=== PATIENT | male | born 1965 | race Two or more races ===

== ENCOUNTER 2017-10-10 02:59 | Emergency (ER) | payer OTHER ==
[2017-10-10 03:08] VITALS: BP 130/80; TEMP 97.9; O2SAT 96
--- NOTE | 2017-10-10 03:18 | EDPHY ---
H & P Stated Complaint: pain behind r knee developed on flight [place] HPI/ROS: HPI CHIEF COMPLAINT: Pain behind right knee. HISTORY OF PRESENT ILLNESS: This patient very pleasant 52-year-old male, otherwise healthy he presents emergency room with pain located behind the right knee or in the popliteal region. No significant calf pain. He denies chest pain or shortness of breath. He does fly weekly 2 [place]. He flew back in to [place] this evening. His flight was 10:30 p.m. out of [place] landed at [facility] airport 1:30 one thirty a.m.. During his flight he developed some cramping in his right posterior leg behind his knee. He has never had a DVT or PE before. He is concerned that given the amount of flying he does weekly that he may have a DVT. Came to the emergency room he denies any significant swelling. Denies injuries to his leg. Denies trauma. States pain is located right posterior popliteal. Denies pleuritic pain, chest pain, shortness of breath. Otherwise feels fine. Came to the Emergency Room to have ultrasound to rule out DVT. Past Medical History: No significant medical history Past Surgical History: No significant surgical history Social History: Denies daily use drugs alcohol tobacco products. Takes weekly trip to [place]. Family History: Noncontributory ROS REVIEW OF SYSTEMS: A comprehensive 10 point review of systems is otherwise negative aside from elements mentioned in the history of present illness. Exam Constitutional appears well nontoxic, triage nursing summary reviewed, vital signs reviewed, awake/alert. Eyes normal conjunctivae and sclera, EOMI, PERRLA. HENT normal inspection, atraumatic, moist mucus membranes, no epistaxis, neck supple/ no meningismus, no raccoon eyes. Respiratory clear to auscultation bilaterally, normal breath sounds, no respiratory distress, no wheezing. Cardiovascular rate normal, regular rhythm, no murmur, no edema, distal pulses normal. Gastrointestinal soft, non-tender, no rebound, no guarding, normal bowel sounds, no distension, no pulsatile mass. Genitourinary no CVA tenderness. Musculoskeletal no midline vertebral tenderness, full range of motion, no calf swelling, no tenderness of extremities, no meningismus, good pulses, neurovascularly intact. Right lower extremity warm extremity. No significant swelling on exam. Good cap refill. Full range of motion. No significant calf tenderness on palpation. No popliteal fullness. Full range of motion. No compartment syndrome. No palpable cord. No cellulitis or abscess visualize. Skin pink, warm, & dry, no rash, skin atraumatic. Neurologic awake, alert and oriented x 3, AAOx3, moves all 4 extremities equally, motor intact, sensory intact, CN II-XII intact, normal cerebellar, normal vision, normal speech. Psychiatric normal mood/affect. Heme/Lymph/Immune no lymphadenopathy. Differential Diagnosis: Includes but is not limited to in a particular order, calf cramp, calf strain, DVT, Dougherty cyst. Medical Decision Making: Plan for this patient ultrasound Doppler right lower extremity rule out DVT. Ibuprofen 800 mg for pain control. Re-evaluate. Re-evaluation: Ultrasound of the Doppler right lower extremity for posterior popliteal and calf pain The results of the study are negative for acute DVT. I discussed the results of this study with the radiologist Dr. Simons 0419: Patient resting comfortably. Feels better after ibuprofen 800 mg. Ultrasound reviewed with him no evidence of DVT. Recommend close follow-up with his primary care doctor. He understands return emergency room if develops worsening pain, swelling questions or concerns. Continues to have pain recommend repeat ultrasound in 1 weeksor follow up closely with his primary care doctor. Source: Patient - Personal History Current Tetanus/Diphtheria Vaccine: Yes Current Tetanus Diphtheria and Acellular Pertussis (TDAP): Yes - Medical/Surgical History Hx Asthma: No Hx Chronic Respiratory Disease: No Hx Diabetes: No Hx Cardiac Disease: No Hx Renal Disease: No Hx Cirrhosis: No Hx Alcoholism: No Hx HIV/AIDS: No Hx Splenectomy or Spleen Trauma: No Other PMH: tonsils - Social History Smoking Status: Never smoked Constitutional: Initial Vital Signs Temperature (C) 36.6 C 10/10/17 03:04 Heart Rate 81 10/10/17 03:04 Respiratory Rate 18 10/10/17 03:04 Blood Pressure 130/80 H 10/10/17 03:04 O2 Sat (%) 96 10/10/17 03:04 O2 Delivery Mode Room Air Allergies/Adverse Reactions: No Known Allergies Allergy (Unverified 10/10/17 03:03) Home Medications: Medication Instructions Recorded Levothyroxine [Synthroid 100 mcg 2 10/10/17 (*)] Medical Decision Making - Data Points Medications Given: Discontinued Medications Ibuprofen (Motrin) 800 mg PO EDNOW ONE Stop: 10/10/17 03:26 Last Admin: 10/10/17 04:03 Dose: 800 mg Departure - Departure Disposition: Home, Routine, Self-Care Clinical Impression: Leg cramp Condition: Good Instructions: Leg Cramps (ED), Muscle Cramp (ED) Additional Instructions: 1. Stay well-hydrated 2. Drink lots of fluids. 3. Return emergency room if you have worsening pain, fever, swelling. 4. If you have further pain or swelling or continue have pain please follow up with her primary care doctor. If it severe return to the ER.
[2017-10-10] MEDS ORDERED: IBUPROFEN 800 MG TAB PO ONE (03:25)
[2017-10-10 04:29] VITALS: PULSE 86; RESP 16
== END 2017-10-10 04:28 | disposition home or self-care (01) ==
DX: R25.2 Cramp and spasm (principal)

== ENCOUNTER → 2018-09-06 | Outpatient (CLI) | payer OTHER | LOC: BMCIMAGING 15:57 | PROVIDERS: ATTEND Podiatrist Foot & Ankle Surgery | DX: M10.071 Idiopathic gout, right ankle and foot (principal) ==

== ENCOUNTER → 2018-09-29 | Outpatient (CLI) | payer OTHER | LOC: BMCIMAGING 10:09 | PROVIDERS: ATTEND Podiatrist Foot & Ankle Surgery | DX: M20.21 Hallux rigidus, right foot (principal) ==

== ENCOUNTER 2019-02-12 08:40 | Emergency (ER) | payer OTHER ==
[2019-02-12 09:23] LABS: PLATELET COUNT 159 10^3/uL (150-400)
--- NOTE | 2019-02-12 09:39 | EDPHY ---
General - History Smoking Status: Never smoked Time Seen by Provider: 02/12/19 08:57 Narrative: CLINICAL IMPRESSION: Leg cramping, dark urine ASSESSMENT/PLAN: 54-year-old male with past medical history of low testosterone and hypothyroidism presents to the emergency department with atraumatic bilateral leg cramping and reports of dark urine this morning. No associated asymmetric lower extremity swelling, temperature difference, or paresthesias. No abdominal pain, emy-colored stools, or history of cirrhosis, hepatitis, or gallbladder problems. Patient found to have an elevated urine urobilinogen level of 4 with no hematuria., CK of 83, not suggestive of acute rhabdomyolysis. Liver enzymes and renal function are normal. No clinical signs to suggest DVT. Repeat urine in the emergency department was clear according to the patient. No reproducible leg discomfort or sign of compartment syndrome today. Discussed with Dr. Villar. I have recommended patient repeat urine study with his primary care doctor in 48 hr. Increased water use and decreased alcohol intake. Warning signs return to ED sooner outlined and discharge. DIFFERENTIAL DX: Differential includes but not limited to rhabdomyolysis, acute liver disease, hepatitis, biliary tract obstruction, cirrhosis, urinary tract infection, pyelonephritis, prostatitis, dehydration, electrolyte imbalance ED PROCEDURES: See lab and/or imaging results below ED COURSE: 9:00 a.m.: Patient seen and assessed by myself. No acute distress, vital signs stable, plan for urine studies, IV, labs including CK and liver function studies. 9:45 a.m.: Labs reviewed by myself. Patient has elevated urobilinogen in the urine with no hematuria, protein urea or glucose. LFTs are unremarkable, no laboratory evidence of hepatitis. Remainder of lab work is reassuring. Patient reassessed, feeling well, labs reviewed in detail. No reported abdominal pain, click colored stools, jaundice or skin coloration, yellowing of the eyes. I did discuss an offer ultrasound of bilateral lower extremity to rule out DVT but he has declined. I emphasized the importance of PCP follow-up in the next 24-48 hours with low threshold for ED return. Patient is in agreement with this plan and comfortable with discharge home. CHIEF COMPLAINT: Bilateral leg cramps and orange urine HPI: Very pleasant 54-year-old male with past medical history of hypothyroidism and rhabdomyolysis in 2001 presents to the emergency department with 2 days of bilateral atraumatic leg cramping. Patient reports last night his cramping was so bad that he was walking "with bent knees hunched over like an elderly person ". He had his massage his legs which was the only thing that alleviated his discomfort and allowed him to sleep. He reports a past history of rhabdomyolysis in 2001 after failing to drink enough water during an adventure raise. He has not had problems since that time and symptoms resolved with 3 L of IV fluid. He reports no traumatic injury, heavy exercise or weightlifting. He does drink alcohol socially but did not have excess alcohol last night. He feels he drinks plenty of water. No reported history of liver disease, cirrhosis or hepatitis. No abdominal pain, nausea vomiting or diarrhea. No history of DVT or PE and patient denies chest pain and shortness of breath. 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 No reported asymmetric swelling to the legs, isolated calf pain erythema or warmth. No reported jaundice, skin discoloration or yellowing of the eyes. PAST MEDICAL HISTORY: Low testosterone, hypothyroidism, history of rhabdomyolysis See nurse/triage notes for additional history if applicable Pertinent Past Surgical History: None reported Family History: Noncontributory Social History: , lives with his , nonsmoker, drinks socially REVIEW OF SYSTEMS: All other systems negative Constitutional: No fever, no chills, appetite change. Cardiovascular: No chest pain, no palpitations. Respiratory: No cough, no shortness of breath. Gastrointestinal: No abdominal pain, no vomiting, diarrhea. Genitourinary: Glades colored urine, denies dysuria, flank pain, pelvic pain Musculoskeletal: No back pain, positive for bilateral leg cramping Skin: No rashes, color change. Neurological: No headache, dizziness, weakness. PHYSICAL EXAM: General Appearance: Alert, oriented, appropriate, cooperative, NAD, well hydrated, non-toxic appearing, hypertensive, remainder of vital signs stable, no hypoxia. Respiratory: There are no retractions, lungs are clear to auscultation. Cardiac: Regular rate and rhythm, no murmurs or gallops. Gastrointestinal: Abdomen is soft, nontender, bowel sounds normal, no masses/ hernia, no rigidity, guarding or focal peritoneal findings. Neurological: [ Alert and oriented x 3, CN 2-12 grossly intact, normal gait no ataxia Skin: Warm, dry, no rashes, no nodules on palpation. Musculoskeletal: Extremities are symmetrical, full range of motion, no tenderness, deformity, swelling, or erythema. No reproducible pain to palpation of either calf. Mild pain to anterior bilateral thighs. Patient reports he had pain posterior hamstring and gluteal muscles last night which is resolved today. No asymmetric erythema, swelling. Distal neurovascular exam is intact. No open wound. Psychiatric: Patient is oriented X 3, there is no agitation. MEDICAL DECISION MAKING: Patient was seen independently. Secondary supervising physician at time of evaluation was Dr. Villar . Diagnosis: Leg cramping, elevated urine urobilinogen . New, requires workup Summary: See Assessment and Plan for summary of ED visit Clinical lab tests: ordered / reviewed. Discussed patient with another provider: Dr. Villar Patient Progress: Stable for discharge. (Joshua Robin) Medical Decision Making: PHYSICIAN DOCUMENTATION: The patient was evaluated and managed by the Physician Language Translator. My co- signature indicates that I have reviewed this chart and I agree with the findings and plan of care as documented. I am the secondary supervising physician. (Karl Villar) - Objective Vital Signs: Initial Vital Signs Temperature (C) 36.6 C 02/12/19 08:43 Heart Rate 69 02/12/19 08:43 Respiratory Rate 16 02/12/19 08:43 Blood Pressure 137/100 H 02/12/19 08:43 O2 Sat (%) 97 02/12/19 08:43 O2 Delivery Mode Room Air Allergies/Adverse Reactions: No Known Allergies Allergy (Unverified 10/10/17 03:03) Home Medications: Medication Instructions Recorded Levothyroxine [Synthroid 100 mcg 2 10/10/17 (*)] Testosterone 02/12/19 Laboratory Results: Laboratory Results 02/12/19 09:05 02/12/19 09:05 02/12/19 02/12/19 02/12/19 09:38 09:05 09:05 WBC 3.82 10^3/uL 10^3/uL (3.80-9.50) RBC 5.22 10^6/uL 10^6/uL (4.40-6.38) Hgb 15.9 g/dL g/dL (13.7-17.5) Hct 46.6 % % (40.0-51.0) MCV 89.3 fL fL (81.5-99.8) MCH 30.5 pg pg (27.9-34.1) MCHC 34.1 g/dL g/dL (32.4-36.7) RDW 12.6 % % (11.5-15.2) Plt Count 159 10^3/uL 10^3/uL (150-400) MPV 10.2 fL fL (8.7-11.7) Neut % (Auto) 57.3 % % (39.3-74.2) Lymph % (Auto) 30.9 % % (15.0-45.0) Powell % (Auto) 9.2 % % (4.5-13.0) Eos % (Auto) 1.6 % % (0.6-7.6) Baso % (Auto) 0.5 % % (0.3-1.7) Nucleat RBC Rel Count 0.0 % % (0.0-0.2) Absolute Neuts (auto) 2.19 10^3/uL 10^3/uL (1.70-6.50) Absolute Lymphs (auto) 1.18 10^3/uL 10^3/uL (1.00-3.00) Absolute Monos (auto) 0.35 10^3/uL 10^3/uL (0.30-0.80) Absolute Eos (auto) 0.06 10^3/uL 10^3/uL (0.03-0.40) Absolute Basos (auto) 0.02 10^3/uL 10^3/uL (0.02-0.10) Absolute Nucleated RBC 0.00 10^3/uL 10^3/uL (0-0.01) Immature Gran % 0.5 % % (0.0-1.1) Immature Gran # 0.02 10^3/uL 10^3/uL (0.00-0.10) Sodium 139 mEq/L mEq/L (135-145) Potassium 4.5 mEq/L mEq/L (3.5-5.2) Chloride 100 mEq/L mEq/L (97-110) Carbon Dioxide 28 mEq/l mEq/l (22-31) Anion Gap 11 mEq/L mEq/L (6-14) BUN 18 mg/dL mg/dL (7-23) Creatinine 1.0 mg/dL mg/dL (0.7-1.3) Estimated GFR > 60 Glucose 107 mg/dL H mg/dL (70-100) Calcium 9.5 mg/dL mg/dL (8.5-10.4) Total Bilirubin 0.6 mg/dL mg/dL (0.1-1.4) Conjugated Bilirubin 0.4 mg/dL mg/dL (0.0-0.5) Unconjugated Bilirubin 0.2 mg/dL mg/dL (0.0-1.1) AST 22 IU/L IU/L (17-59) ALT 33 IU/L IU/L (21-72) Alkaline Phosphatase 70 IU/L IU/L (38-126) Creatine Kinase 82 IU/L IU/L (0-224) Total Protein 7.1 g/dL g/dL (6.3-8.2) Albumin 4.4 g/dL g/dL (3.5-5.0) Urine Color Urine Appearance Urine pH Ur Specific Odin Urine Protein Urine Ketones Urine Blood Urine Nitrate Urine Bilirubin Urine Urobilinogen Ur Leukocyte Esterase Urine Glucose 02/12/19 09:00 WBC RBC Hgb Hct MCV MCH MCHC RDW Plt Count MPV Neut % (Auto) Lymph % (Auto) Powell % (Auto) Eos % (Auto) Baso % (Auto) Nucleat RBC Rel Count Absolute Neuts (auto) Absolute Lymphs (auto) Absolute Monos (auto) Absolute Eos (auto) Absolute Basos (auto) Absolute Nucleated RBC Immature Gran % Immature Gran # Sodium Potassium Chloride Carbon Dioxide Anion Gap BUN Creatinine Estimated GFR Glucose Calcium Total Bilirubin Conjugated Bilirubin Unconjugated Bilirubin AST ALT Alkaline Phosphatase Creatine Kinase Total Protein Albumin Urine Color YELLOW Urine Appearance CLEAR Urine pH 6.0 (5.0-7.5) Ur Specific Odin 1.004 (1.002-1.030) Urine Protein NEGATIVE (NEGATIVE) Urine Ketones NEGATIVE (NEGATIVE) Urine Blood NEGATIVE (NEGATIVE) Urine Nitrate NEGATIVE (NEGATIVE) Urine Bilirubin NEGATIVE (NEGATIVE) Urine Urobilinogen 4.0 EU H EU (0.2-1.0) Ur Leukocyte Esterase NEGATIVE (NEGATIVE) Urine Glucose NEGATIVE (NEGATIVE) Departure - Departure Disposition: Home, Routine, Self-Care Clinical Impression: Leg cramps, Dark urine Condition: Good Instructions: Leg Cramps (ED) Additional Instructions: DISCHARGE INSTRUCTIONS FROM YOUR DOCTOR Thank you for visiting our emergency department today. You were treated by a physician virtual office assistant today and your case was reviewed with our ED Attending physician. Please keep in mind that discharge from the emergency department does not mean that there is nothing wrong - it simply means that we have not identified an emergency condition that requires further evaluation or treatment in the hospital. You should always plan to follow up with primary care for re- evaluation of your condition in the next 2-3 days. If you have been referred to a specialist, please call as soon as possible (today or tomorrow) to schedule your follow up appointment at the appropriate time. DIAGNOSTIC EVALUATION IN THE EMERGENCY DEPARTMENT INCLUDED URINE STUDIES AND LABORATORY EVALUATION. IN YOUR URINE, YOU HAVE ELEVATED UROBILINOGEN AT A LEVEL OF 4. THE REMAINDER OF YOUR URINE STUDY IS NORMAL WITH NO PROTEIN, GLUCOSE , BLOOD, OR BACTERIA. KIDNEY FUNCTIONS ARE NORMAL, LIVER ENZYMES ARE NORMAL, NO ABNORMAL CBC, SPECIFICALLY ANEMIA OR PLATELET ABNORMALITY. CREATININE KINASE LEVEL WAS NORMAL WITH NO INDICATION OF RHABDOMYOLYSIS. A COPY OF YOUR LAB WORK WAS PROVIDED. PLEASE MAKE A FOLLOW-UP APPOINTMENT WITH YOUR PRIMARY CARE DOCTOR ON THURSDAY FOR REPEAT URINE STUDIES. PLEASE ABSTAIN FROM ALCOHOL, CAFFEINE OR DEHYDRATING BEVERAGES AND STICK TO WATER FOR THE NEXT 24 HR. MONITOR SYMPTOMS CLOSELY. RETURN TO THE EMERGENCY DEPARTMENT IMMEDIATELY FOR WORSENING LEG CRAMPING, JAUNDICE DISCOLORATION OF THE SKIN, YELLOWING OF THE EYES, EMY-COLORED STOOLS, PERSISTENT DARK COLORED URINE, FLANK PAIN, ABDOMINAL PAIN, NAUSEA OR VOMITING, OR ANY OTHER CONCERNS. People present with illnesses and injuries in different ways, and it is always possible that we have missed something. You may always return for re-evaluation if symptoms worsen or if they are not improving or if you develop new/different symptoms. Again, thank you for choosing our emergency department. We hope that you feel better. Referrals: DAVID SCHMIDT [Other] - 1-2 days without fail
[2019-02-12 09:42] LABS: CREATINE KINASE 82 IU/L (0-224)
[2019-02-12 10:30] VITALS: BP 129/95
== END 2019-02-12 10:30 | disposition home or self-care (01) ==
DX: R25.2 Cramp and spasm (principal); R82.998 Other abnormal findings in urine; E03.9 Hypothyroidism, unspecified